=== PATIENT | female | born 1955 ===

== ENCOUNTER 2020-06-07 06:00 | Day surgery (SDC) | payer OTHER ==
[~2020-06-07 06:00] MED LIST: ATORVASTATIN CA40 MG PO; AVALIDE 300-12.1 TAB PO; CATAPRES0.2 MG PO; KAPVAY0.1 MG PO; NORVASC10 MG PO; TOPROL XL50 MG PO
[2020-06-07] MEDS ORDERED: ULTRACET PO (08:56)
[2020-06-07] MEDS ORDERED: RECTICARE30 GM TOP (08:57)
[2020-06-07] MEDS ORDERED: GABAPENTIN100 MG PO (08:57)
== END 2020-06-07 12:55 | disposition home or self-care (01) ==
LOC: CIR.AMB 06:00 → ADM 09:00 → CIR.AMB 12:55
PROVIDERS: ATTEND Surgery
DX: K60.1 Chronic anal fissure (principal); K60.3 Anal fistula; Z20.828 Contact with and (suspected) exposure to other viral communicable diseases

== ENCOUNTER 2023-03-08 08:32 | Outpatient (CLI) | payer OTHER ==
[~2023-03-08 08:32] MED LIST changes: +GABAPENTIN100 MG PO; +RECTICARE30 GM TOP; +ULTRACET PO
== END 2023-03-08 08:37 | disposition home or self-care (01) ==
LOC: LAB 08:32
PROVIDERS: ATTEND Specialist
DX: D17.1 Benign lipomatous neoplasm of skin and subcutaneous tissue of trunk (principal); I10 Essential (primary) hypertension; D68.9 Coagulation defect, unspecified

== ENCOUNTER 2023-03-17 14:42 | Outpatient (CLI) | payer OTHER ==
[~2023-03-17 14:42] MED LIST changes: +ALDACTONE25 MG PO; +HYDRALAZINE HCL25 MG PO; +HYDROCHLOROTHIA25 MG PO; +IRBESARTAN300 MG PO; +ZETIA10 MG PO
== END 2023-03-17 14:48 | disposition home or self-care (01) ==
LOC: SONOGRAMA 14:42
PROVIDERS: ATTEND Specialist
DX: D17.1 Benign lipomatous neoplasm of skin and subcutaneous tissue of trunk (principal)

== ENCOUNTER 2023-03-18 06:30 | Day surgery (SDC) | payer OTHER ==
[~2023-03-18] VITALS: Ht 162.6 cm; Wt 95.3 kg
== END 2023-03-18 16:15 | disposition home or self-care (01) ==
LOC: CIR.AMB 06:30
PROVIDERS: ATTEND Specialist
DX: D17.1 Benign lipomatous neoplasm of skin and subcutaneous tissue of trunk (principal); I10 Essential (primary) hypertension; Z20.822 Contact with and (suspected) exposure to COVID-19; Z88.6 Allergy status to analgesic agent

== ENCOUNTER 2024-06-14 08:43 | Day surgery (SDC) | payer OTHER ==
[2024-06-09 11:09] LABS: PH,URINE 7.5 (5.0-8.0); URINE APPEARANCE Clear; URINE BILIRRUBIN Negative (NEGATIVE); URINE BLOOD Negative; URINE COLOR Yellow; URINE GLUCOSE Negative (NEGATIVE); URINE KETONE Negative (NEGATIVE); URINE LEUKOCYTE Trace; URINE NITRATE Negative; URINE PROTEIN Negative (NEGATIVE); URINE UROBILINOGEN 0.2 E.U./dl
[2024-06-09 11:13] LABS: URINE BACTERIA 50.3 uL (0.0-1933); URINE EPITHELIAL CELLS 4.6 uL (0.0-38.8); URINE RBC 3.2 uL (0.0-20.8)
[2024-06-09 11:16] LABS: HEMATOCRIT 38.2 % (36.0-45.00); HEMOGLOBIN 13.2 g/dL (12.0-15.00); MEAN CELL VOLUME 91.2 fL (80.00-100.00); MEAN CORPUSCULAR HEMOGLOBIN 31.6 pg (27.00-32.0); MEAN CORPUSCULAR HGB CONC 34.7 g/dl (32.0-36.0); PLATELET COUNT 275 K/uL (150-450); RED BLOOD COUNT 4.19 M/uL (4.00-6.00); RED CELL DISTRIBUTION WIDTH 14.5 % (11.5-14.5)
[2024-06-09 11:29] LABS: INR 1.02; PARTIAL THROMBOPLASTIN TIME 25.2 SECONDS (22.0-34.0); PROTHROMBIN TIME 10.7 SECONDS (9.0-11.5)
[2024-06-09 11:45] LABS: ALBUMIN 4.1 gm/dL (3.4-5.0); BILIRUBIN TOTAL 0.59 mg/dL (0.3-1.2); CALCIUM 9.6 mg/dL (8.5-10.1); CREATININE SERUM 0.85 mg/dL (0.55-1.02); GFR 66.71; GLOBULINA 2.9 G/DL (2.4-3.5); POTASSIUM 3.92 mEq/L (3.5-5.1)
[2024-06-14] MEDS ORDERED: BUPIVACAINE HCL/Mpf 0.5% 10ML VIAL ONE (11:45)
[2024-06-14] MEDS ORDERED: LIDOCAINE HCL 1%/EPINEPHRINE 20ML VIAL IJ ONE (11:45)
[2024-06-14] MEDS ORDERED: CEFTRIAXONE SODIUM 2,000 MG VIAL ONE (11:46)
[2024-06-14] MEDS ORDERED: METRONIDAZOLE/SODIUM CHLORIDE 500 MG/100 ML PIGGYBACK IV ONE (11:46)
[2024-06-14] MEDS ORDERED: POVIDONE-IODINE 118 ML BOTT TOP ONE (11:49)
[2024-06-14] MEDS ORDERED: HEMOSTATIC MATRIX 1 KIT KIT TOP ONE (11:49)
[2024-06-14] MEDS ORDERED: DIBUCAINE 30 GM TUBE ONE (11:49)
[2024-06-14] MEDS ORDERED: CELECOXIB200 MG PO (13:55)
[2024-06-14] MEDS ORDERED: PERCOCET 5-3251 EACH PO (13:55)
[2024-06-14] MEDS ORDERED: NEURONTIN300 MG PO (13:55)
== END 2024-06-14 15:35 | disposition home or self-care (01) ==
LOC: CIR.AMB 08:43
PROVIDERS: ATTEND Surgery
DX: K60.3 Anal fistula (principal); I10 Essential (primary) hypertension; Z85.038 Personal history of other malignant neoplasm of large intestine; Z86.010 Personal history of colon polyps; Z88.4 Allergy status to anesthetic agent